=== PATIENT | male | born 1985 | race Caucasian/White ===

== ENCOUNTER 2019-08-19 14:28 | Emergency (ER) | payer OTHER | END 2019-08-19 16:23 | disposition left against medical advice (07) | LOC: EDH 14:28 | DX: Z53.21 Procedure and treatment not carried out due to patient leaving prior to being seen by health care provider (principal); Z91.030 Bee allergy status; Z91.018 Allergy to other foods; I10 Essential (primary) hypertension; Z72.0 Tobacco use ==